=== PATIENT | female | born 1995 | race Caucasian/White ===

== ENCOUNTER 2018-09-08 14:57 | Emergency (ER) | payer MEDICAID ==
[~2018-09-08] VITALS: Ht 157.5 cm; Wt 48.1 kg
[~2018-09-08 14:57] MED LIST: FOLIC ACID1 MG PO; KEFLEX500 MG PO; LAC PO; MOT800 PO; PRENATAL VITAMI1 TA1 PO
[2018-09-08 15:04] VITALS: Ht 157.5 cm; Wt 48.1 kg
[2018-09-08 16:50] VITALS: BP 93/62
== END 2018-09-08 16:50 | disposition home or self-care (01) ==
LOC: ED 14:57
DX: R51 Headache (principal); Z98.890 Other specified postprocedural states; Z88.6 Allergy status to analgesic agent; Z88.5 Allergy status to narcotic agent
CPT/HCPCS: J1885